=== PATIENT | female | born 1955 | race Caucasian/White ===

== ENCOUNTER → 2017-11-10 | Outpatient (CLI) | payer OTHER ==
--- NOTE | 2017-11-10 10:27 | RAD ---
DATE: 11/10/2017 EXAM: MAMMO DAIN SCREENING BILATERAL HISTORY: Routine screening. COMPARISON: 10/20/2016 and 10/17/2015. This study was interpreted with the benefit of Computerized Aided Detection (CAD). FINDINGS: The parenchymal pattern is stable. Benign calcifications are noted bilaterally. No mass or suspicious microcalcifications are seen. The axillae are unremarkable. Breast Density: DENSE The breast parenchyma is dense, which could reduce the sensitivity of mammography. Breast parenchyma level density D. IMPRESSION: No mammographic features suspicious for malignancy are identified. BI-RADS CATEGORY: 2 BENIGN FINDING(S) RECOMMENDED FOLLOW-UP: 12M 12 MONTH FOLLOW-UP PQRS compliance statement: Patient information was entered into a reminder system with a target due date 11/10/2018 for the next mammogram. Mammography is a sensitive method for finding small breast cancers, but it does not detect them all and is not a substitute for careful clinical examination. A negative mammogram does not negate a clinically suspicious finding and should not result in delay in biopsying a clinically suspicious abnormality. "Our facility is accredited by the [employer] Mammography [employer]."
== END | disposition home or self-care (01) ==
LOC: MAMMO 08:11
PROVIDERS: ATTEND Obstetrics & Gynecology
DX: Z12.31 Encounter for screening mammogram for malignant neoplasm of breast (principal)
CPT/HCPCS: 77063; G0202; 77067

== ENCOUNTER → 2018-11-19 | Outpatient (CLI) | payer OTHER ==
--- NOTE | 2018-11-19 09:08 | RAD ---
DATE: 11/11/2018 EXAM: DIGITAL SCREEN BILAT W/CAD HISTORY: Routine screening COMPARISON: 11/10/2017 This study was interpreted with the benefit of Computerized Aided Detection (CAD). Breast Density: DENSE The breast parenchyma is dense, which could reduce the sensitivity of mammography. Breast parenchyma level density D. FINDINGS: No new or enlarging breast densities are seen. Numerous benign type calcifications are again noted. No suspicious microcalcifications have developed. IMPRESSION: Stable mammograms without evidence of malignancy. BI-RADS CATEGORY: 2 BENIGN FINDING(S) RECOMMENDED FOLLOW-UP: 12M 12 MONTH FOLLOW-UP PQRS compliance statement: Patient information was entered into a reminder system with a target due date for the next mammogram. Mammography is a sensitive method for finding small breast cancers, but it does not detect them all and is not a substitute for careful clinical examination. A negative mammogram does not negate a clinically suspicious finding and should not result in delay in biopsying a clinically suspicious abnormality. "Our facility is accredited by the [employer] Mammography [employer]."
== END | disposition home or self-care (01) ==
LOC: MAMMO 07:58
PROVIDERS: ATTEND Obstetrics & Gynecology
DX: Z12.31 Encounter for screening mammogram for malignant neoplasm of breast (principal)
CPT/HCPCS: 77067

== ENCOUNTER → 2019-06-08 | Outpatient (CLI) | payer OTHER, MEDICARE ==
--- NOTE | 2019-06-08 14:31 | RAD ---
US SOFT TISSUE HEAD AND NECK CLINICAL INDICATION: Neck fullness PROCEDURE: Transverse and longitudinal grayscale and color Doppler images of the thyroid were obtained. COMPARISON: None FINDINGS: Right: The right thyroid lobe measures 3.0 x 0.7 x 1.0 cm with multiple anechoic lesions, the largest measuring 0.2 x 0.1 x 0.2 cm. Isthmus: Measures 2 mm in thickness and is within minimal limits. Left: The left thyroid lobe measures 2.0 x 0.8 x 0.6 cm. 0.3 x 0.3 x 0.2 cm oval-shaped anechoic lesion with central echogenicity most likely a colloid cyst. Another hypoechoic lesion measuring 0.3 x 0.2 x 0.1 cm with echogenicity likely another colloid cyst. IMPRESSION: Bilateral colloid cysts. Electronically signed by: Anthony Kat DO (06/08/2019 2:28 PM) [facility]
== END | disposition home or self-care (01) ==
LOC: US 10:46
PROVIDERS: ATTEND Physician Assistant Medical
DX: E04.1 Nontoxic single thyroid nodule (principal)
CPT/HCPCS: 76536

== ENCOUNTER → 2019-07-19 | Outpatient (CLI) | payer OTHER, MEDICARE ==
--- NOTE | 2019-07-19 10:39 | CARD ---
MR#: [id number] Date of Study: 07/19/2019 Ordering Physician: JONATAN BOYKIN, Referring Physician: JONATAN BOYKIN, Tech: Barbara Mann APPROVED REPORT EXAM: Two-dimensional and M-mode echocardiogram with Doppler and color Doppler. Other Information Quality : AverageHR: 71bpm INDICATION Palpitations RISK FACTORS Hypertension 2D DIMENSIONS RVDd2.0 (2.9-3.5cm)Left Atrium(2D)2.1 (1.6-4.0cm) IVSd0.8 (0.7-1.1cm)Aortic Root(2D)3.1 (2.0-3.7cm) LVDd3.8 (3.9-5.9cm)LVOT Diameter2.0 (1.8-2.4cm) PWd0.7 (0.7-1.1cm)LVDs3.1 (2.5-4.0cm) FS (%) 19.7 %SV25.6 ml LVEF(%)41.2 (>50%) Aortic Valve AoV Peak Fan.175.7cm/sAoV VTI43.9cm AO Peak GR.12.3mmHgLVOT Peak Fan.89.9cm/s LVOT VTI 20.41cmAO Mean GR.7mmHg CRISS (VMAX)1.72cd4NPE (VTI)1.45cm2 AI P 1/2 [id number] Mitral Valve MV E Bznsaqyi02.2cm/sMV E Peak Gr.133mmHg MV DECEL [id number] A Sprmyepr30.6cm/s MV E Mean Gr.2mmHgE/A Ratio0.9 Pulmonary Valve PV Peak Hpjfscgq48.2cm/sPV Peak Grad.4mmHg Tricuspid Valve TR P. Erbardgq379gf/sRAP [id number] TR Peak Gr.25ecZrCXWM33csYt Pulmonary Vein S1 Hcmyqesb20.6cm/sD2 Racapexd67.9cm/s LEFT VENTRICLE The left ventricle is normal size. There is normal left ventricular wall thickness. The left ventricu lar systolic function is normal and the ejection fraction is within normal range. EF 50% There is nor mal LV segmental wall motion. Transmitral Doppler flow pattern is Grade I-abnormal relaxation pattern . RIGHT VENTRICLE The right ventricle is normal size. There is normal right ventricular wall thickness. The right ventr icular systolic function is normal. ATRIA The left atrium size is normal. The right atrium size is normal. The interatrial septum is intact wit h no evidence for an atrial septal defect or patent foramen ovale as noted on 2-D or Doppler imaging. AORTIC VALVE The aortic valve is normal in structure and function. Doppler and Color Flow revealed mild to moderat e aortic regurgitation. There is no significant aortic valvular stenosis. Calculated aortic valve are a is 1.6 cm2 with maximum pressure gradient of 13 mmHg and mean pressure gradient of 8 mmHg. MITRAL VALVE The mitral valve is normal in structure and function. There is no evidence of mitral valve prolapse. There is no mitral valve stenosis. Doppler and Color-flow revealed trace mitral regurgitation. TRICUSPID VALVE The tricuspid valve is normal in structure and function. Doppler and Color Flow revealed trace tricus pid regurgitation with an estiamted PAP of 32 mmHg. There is no tricuspid valve prolapse or vegetatio n. There is no tricuspid valve stenosis. PULMONIC VALVE The pulmonic valve is not well visualized. Doppler and Color Flow revealed no pulmonic valvular regur gitation. There is no pulmonic valvular stenosis. GREAT VESSELS The aortic root is normal in size. The IVC is normal in size and collapses >50% with inspiration. PERICARDIAL EFFUSION There is no evidence of significant pericardial effusion. Critical Notification Critical Value: No <Conclusion> The left ventricular systolic function is normal and the ejection fraction is within normal range. EF 50% There is normal LV segmental wall motion. Signed by : Aniceto Bundy, Electronically Approved : 07/19/2019 10:38:59
== END | disposition home or self-care (01) ==
LOC: ECHO 08:02
PROVIDERS: ATTEND Physician Assistant Medical
DX: I35.1 Nonrheumatic aortic (valve) insufficiency (principal)
CPT/HCPCS: 93306

== ENCOUNTER → 2019-11-29 | Outpatient (CLI) | payer OTHER, MEDICARE ==
--- NOTE | 2019-11-30 16:53 | RAD ---
DATE: 11/29/2019 EXAM: MAMMO DAIN SCREENING BILATERAL HISTORY: Routine screening COMPARISON: 11/11/2018, 11/10/2017, 10/20/2016, 10/17/2015 mammographic exams This study was interpreted with the benefit of Computerized Aided Detection (CAD). Breast Density: DENSE The breast parenchyma is dense, which could reduce the sensitivity of mammography. Breast parenchyma level density D. FINDINGS: Benign-appearing calcifications are present. No masses or distortion. No suspicious calcification clusters in the interval. IMPRESSION: Stable BI-RADS CATEGORY: 1 NEGATIVE RECOMMENDED FOLLOW-UP: 12M 12 MONTH FOLLOW-UP. PQRS compliance statement: Patient information was entered into a reminder system with a target due date for the next mammogram. Mammography is a sensitive method for finding small breast cancers, but it does not detect them all and is not a substitute for careful clinical examination. A negative mammogram does not negate a clinically suspicious finding and should not result in delay in biopsying a clinically suspicious abnormality. "Our facility is accredited by the [employer] Mammography Program."
== END | disposition home or self-care (01) ==
LOC: MAMMO 07:43
PROVIDERS: ATTEND Physician Assistant Medical
DX: Z12.31 Encounter for screening mammogram for malignant neoplasm of breast (principal); N64.89 Other specified disorders of breast
CPT/HCPCS: 77063; 77067

== ENCOUNTER → 2020-06-12 | Outpatient (CLI) | payer OTHER, MEDICARE ==
--- NOTE | 2020-06-12 08:36 | RAD ---
EXAM: Thyroid sonogram. HISTORY: Multinodular goiter. TECHNIQUE: Sonographic imaging of the thyroid was performed. COMPARISON: None. FINDINGS: The right thyroid lobe measures 3.0 x 0.9 x 0.8 cm. The left thyroid lobe measures 2.6 x 1.2 x 0.7 cm. There are tiny colloid cysts within both thyroid lobes, the largest of which measure 2 mm within the right thyroid lobe and 3 mm within the left thyroid lobe. The thyroid parenchyma is slightly heterogeneous. No solid nodule seen. IMPRESSION: Slightly heterogeneous thyroid containing colloid cysts. No suspicious solid nodule is seen. Electronically signed by: Nae Mills MD (06/12/2020 8:32 AM) [id number]
== END | disposition home or self-care (01) ==
LOC: US 07:56
PROVIDERS: ATTEND Internal Medicine Endocrinology, Diabetes & Metabolism
DX: E04.2 Nontoxic multinodular goiter (principal)
CPT/HCPCS: 76536

== ENCOUNTER → 2021-01-23 | Outpatient (CLI) | payer MEDICARE ==
--- NOTE | 2021-01-24 08:36 | RAD ---
DATE: 01/23/2021 11:11 AM EXAM: MAMMO DAIN SCREENING BILATERAL HISTORY: Screening COMPARISON: 11/29/2019 Bilateral CC and MLO views of the breasts were performed. Bilateral breast tomosynthesis was performed in CC and MLO projections. This study was interpreted with the benefit of Computerized Aided Detection (CAD). FINDINGS: Breast Density: DENSE The breast Parenchyma is dense, which could reduce the sensitivity of mammography. Breast parenchyma level density D. Negative left mammogram. Focal asymmetry in the medial middle third right breast at the approximate 2:30 o'clock position 4 cm from the nipple best seen on cc tomographic image 22 of 47 and likely also present on tomographic image 38 of 46 on the MLO series needs additional imaging with spot compression cc view, full-field lateral view and targeted medial right breast ultrasound. IMPRESSION: No mammographic evidence of malignancy. BI-RADS CATEGORY: 0 INCOMPLETE: NEEDS ADDITIONAL IMAGING EVALUATION AND/OR PRIOR MAMMOGRAMS FOR COMPARISON. RECOMMENDED FOLLOW-UP: ADD ADDITIONAL IMAGING The patient will be contacted to return for additional imaging and a supplemental report will follow. PQRS compliance statement: Patient information was entered into a reminder system with a target due date for the next mammogram. Mammography is a sensitive method for finding small breast cancers, but it does not detect them all and is not a substitute for careful clinical examination. A negative mammogram does not negate a clinically suspicious finding and should not result in delay in biopsying a clinically suspicious abnormality. "Our facility is accredited by the [employer] Mammography Program."
== END ==
LOC: MAMMO 10:48
PROVIDERS: ATTEND Physician Assistant Medical
DX: Z12.31 Encounter for screening mammogram for malignant neoplasm of breast (principal)
CPT/HCPCS: 77063; 77067

== ENCOUNTER → 2021-02-13 | Outpatient (CLI) | payer MEDICARE ==
--- NOTE | 2021-02-13 17:42 | RAD ---
Examination: 1. Right digital diagnostic mammogram 2. Targeted right breast ultrasound. INDICATION: 65-year-old woman recalled from screening for focal asymmetry in the medial right breast. COMPARISON: 01/23/2021, 11/29/2019, 11/19/2018 bilateral mammograms. TECHNIQUE: Spot compression views of the right breast in the CC and MLO projections were obtained in addition to fulfill right ML view. Targeted ultrasound of the medial right breast was also performed. FINDINGS: The breasts are extremely dense. The additional mammographic views show scattered punctate benign-appearing calcifications and a clust er of coarse benign-appearing dystrophic calcifications in the lower outer quadrant right breast. The asymmetry recalled from screening is not well seen on 2-D imaging. It is best appreciated on image 2 2 of 47 on the CC tomographic series. Targeted sonographic evaluation of the medial right breast reveals no suspicious sonographic findings . [employer] images were acquired at the 2:30 o'clock position 4 cm from the nipple with imaging performed between 1 and 3:00 positions. Incidentally noted were sonographically benign [address] at the 9:00 position 4 cm from the nipple and an oval parallel orientation circumscribed 7 mm mass with low-level internal echoes compatible with a complicated cyst or fibroadenoma at the retroareola r right 9:00 position. IMPRESSION: Probably benign findings in the medial right breast. Recommend 6 month follow-up right diagnostic mammogram and targeted breast ultrasound. BI-RADS Category 3 Probably benign findings Patient entered into a reminder system with targeted due date for next mammogram. Electronically signed by: Donny Ogden MD (02/13/2021 5:39 PM) [id number]
== END ==
LOC: MAMMO 13:41
PROVIDERS: ATTEND Physician Assistant Medical
DX: R92.2 Inconclusive mammogram (principal); N60.01 Solitary cyst of right breast
CPT/HCPCS: 76641; 77065

== ENCOUNTER → 2021-07-09 | Outpatient (CLI) | payer MEDICARE ==
--- NOTE | 2021-07-09 18:08 | RAD ---
INDICATION: Screening for osteopenia/osteoporosis. Postmenopausal evaluation COMPARISON: None. TECHNIQUE: Bone densitometry was performed through the lumbar spine and proximal femur. IMPRESSION: Lumbar Spine: BMD: 0.81 T-Score: -3.1 Range: Osteoporotic Proximal Femur: BMD: 0.59 T-Score: -2.8 Range: Osteoporotic World Health Organization Criteria for Bone Density: T-Score: > -1.0: Normal Range < -1.0 to -2.5: Osteopenic Range < -2.5: Osteoporotic Range Electronically signed by: Juarez Rhodes MD (07/09/2021 6:05 PM) [id number]
== END ==
LOC: DXRAD 13:33
PROVIDERS: ATTEND Physician Assistant Medical
DX: M81.0 Age-related osteoporosis without current pathological fracture (principal); N95.9 Unspecified menopausal and perimenopausal disorder
CPT/HCPCS: 77080

== ENCOUNTER → 2021-08-07 | Outpatient (CLI) | payer MEDICARE ==
--- NOTE | 2021-08-07 14:17 | RAD ---
EXAM: Right breast diagnostic mammogram with tomosynthesis; right breast sonogram. HISTORY: 66-year-old female presents for follow-up evaluation of findings within the right breast dem onstrated on a sonogram and mammogram performed 02/13/2021. TECHNIQUE: Full-field digital craniocaudal and mediolateral oblique 2D and 3D tomosynthesis images of the right breast are obtained for evaluation. Computer aided detection was applied. Sonographic imag ing of the right breast targeted to sites of prior findings was also performed. COMPARISON: 02/13/2021, 01/23/2021, 11/29/2019, 11/19/2018, 11/10/2017 BREAST PARENCHYMAL DENSITY: Level D - Extremely dense. FINDINGS: There is no new suspicious mass, microcalcification or region of architectural distortion. There are stable areas of asymmetry and nodularity within the right breast. There are stable benign c alcifications. Sonogram imaging of the right breast demonstrates a stable 8 mm cyst with slightly thickened eastman an d internal echoes likely due to debris at the 9:00 position 4 cm from the nipple. There is also a sta ble 6 mm circumscribed hypoechoic lesion at the 9:00 retroareolar location, possibly a debris-filled cyst or fibroadenoma. There is a 4 mm complicated cyst at the 9:00 retroareolar location. There are e ctatic ducts and fibrocystic changes within the anterior right breast. IMPRESSION: 1. Small stable complicated cystic lesions within the right breast and possible complicated cyst or f ibroadenoma at the 9:00 retroareolar location of the right breast. No new suspicious mammographic or sonographic lesion is seen. 2. BI-RADS Category 3: Probably benign finding(s). Precautionary short-term follow up with a diagnost ic right breast mammogram and sonogram in 6 months is recommended to confirm a year of stability and correspond with the previously established bilateral mammography interval. If your mammogram demonstrates that you have dense breast tissue, which could hide abnormalities, and if you have other risk factors for breast cancer that have been identified, you might benefit from s upplemental screening tests that may be suggested by your ordering physician. Dense breast tissue, i n and of itself, is a relatively common condition. This information is not provided to cause undue c oncern, but rather to raise your awareness and to promote discussion with your physician regarding th e presence of other risk factors, in addition to dense breast tissue. A report of your mammography re sults will be sent to you and your physician. You should contact your physician if you have any ques tions or concerns regarding this report. Mammography is a sensitive method for finding small breast cancers, but it does not detect them all a nd is not a substitute for careful clinical examination. A negative mammogram does not negate a clin ically suspicious finding and should not result in delay in biopsying a clinically suspicious abnorma lity. PQRS compliance statement - Patient information was entered into a reminder system with a target due date for the next mammogram. "Our facility is accredited by the [employer] Mammography Program." Electronically signed by: Nae Mills MD (08/07/2021 2:15 PM) [id number]
== END ==
LOC: MAMMO 12:54
PROVIDERS: ATTEND Physician Assistant Medical
DX: N60.01 Solitary cyst of right breast (principal); R92.8 Other abnormal and inconclusive findings on diagnostic imaging of breast; Z00.00 Encounter for general adult medical examination without abnormal findings
CPT/HCPCS: 76642; 77065; G0279; 77061